=== PATIENT | female | born 1935 | race Caucasian/White ===

== ENCOUNTER 2024-11-20 14:20 | Emergency (ER) | payer MEDICARE ==
[2024-11-20] MEDS ORDERED: Acetaminophen 500 MG TAB ONE (14:51)
[2024-11-20] MEDS ORDERED: predniSONE 20 MG TAB ONE (16:17)
== END 2024-11-20 16:30 | disposition home or self-care (01) ==
LOC: BURERS 14:20
DX: G58.9 Mononeuropathy, unspecified (principal); I10 Essential (primary) hypertension
CPT/HCPCS: 72125; J7512